=== PATIENT | female | born 1980 | race Caucasian/White ===

== ENCOUNTER 2017-05-10 06:42 | Inpatient (IN) | payer BC ==
[~2017-05-10] VITALS: Ht 170.2 cm; Wt 124.3 kg
[2017-05-10] MEDS ORDERED: OXYTOCIN 30 UNIT/500 ML PREMIX 500 ML IV ONE (07:48)
[2017-05-10] MEDS ORDERED: OXYTOCIN 30 UNIT/500 ML PREMIX 500 ML IV PRN ×4 (08:00→17:15)
[2017-05-10] MEDS ORDERED: LIDOCAINE 1% PF 30 ML VIAL. INJ PRN (08:00)
[2017-05-10] MEDS ORDERED: 0.9 % SODIUM CHLORIDE 10 ML DISP.SYRIN. IV PRN ×3 (08:00→17:15)
[2017-05-10] MEDS ORDERED: TERBUTALINE 1 MG/ML VIAL. SQ PRN (08:00)
[2017-05-10] MEDS ORDERED: fentaNYL PF VIAL 100 MCG/2 ML VIAL IV PRN (08:00)
[2017-05-10] MEDS ORDERED: BUTORPHANOL 2 MG/ML VIAL. IV PRN ×2 (08:00)
[2017-05-10] MEDS ORDERED: MAGNESIUM HYDROXIDE 2,400 MG/30 ML ORAL.SUSP. PO PRN ×2 (08:15→17:15)
[2017-05-10] MEDS ORDERED: SIMETHICONE 80 MG TAB.CHEW PO PRN ×2 (08:15→17:15)
[2017-05-10] MEDS ORDERED: HYDROCORTISONE 1% TOPICAL OINTMENT 30GM TUBE. TP PRN ×2 (08:15→17:15)
[2017-05-10] MEDS ORDERED: diphenhydrAMINE HCL 25 MG CAPSULE PO PRN ×2 (08:15→17:15)
[2017-05-10] MEDS ORDERED: ZOLPIDEM 5 MG TABLET. PO PRN (08:15)
[2017-05-10] MEDS ORDERED: ACETAMINOPHEN 325 MG TABLET. PO PRN (08:15)
[2017-05-10] MEDS ORDERED: DOCUSATE SODIUM 100 MG CAPSULE. PO PRN ×2 (08:15→17:15)
[2017-05-10] MEDS ORDERED: BENZOCAINE 20% TOPICAL AEROSOL SPRAY 57GM CAN. TP PRN ×2 (08:15→17:15)
[2017-05-10] MEDS ORDERED: MMR per PROTOCOL. MC PRN (08:15)
[2017-05-10] MEDS ORDERED: oxyCODONE/APAP 5/325 1 TAB TABLET PO PRN (08:15)
[2017-05-10] MEDS ORDERED: MAG HYDROX/ALUMINUM HYD/SIMETH 30 ML ORAL.SUSP PO PRN ×2 (08:15→17:15)
[2017-05-10] MEDS ORDERED: PHENYLEPH/MINERAL OIL/PETROLAT RECTAL OINTMENT 28GM TUBE. RC PRN ×2 (08:15→17:15)
[2017-05-10 08:19] VITALS: BP 144/90
[2017-05-10 08:28] LABS: HEMATOCRIT 33.2 % (36.0-47.0); HEMOGLOBIN 10.6 g/dL (12.0-15.5); RED BLOOD COUNT 4.2 x10^6/uL (3.50-5.40); RED CELL DISTRIBUTION WIDTH 15.2 % (11.5-14.5); WHITE BLOOD COUNT 12.8 x10^3/uL (4.0-11.0)
[2017-05-10] MEDS: CLINDAMYCIN 900MG PREMIX 50 ML IV SCH ×2 (09:28→18:20)
[2017-05-10] MEDS: IV RINGERS,LACTATED 1000ML 1,000 ML IV SCH ×3 (09:35→23:57)
[2017-05-10] MEDS ORDERED: L&D EPIDURAL CASSETTE 100 ML EP ONE (15:00)
[2017-05-10] MEDS ORDERED: ROPIVacaine 0.2% IN 0.9%NACL PF 40 MG/20 ML DISP.SYRIN. ONE (15:00)
[2017-05-10] MEDS ORDERED: fentaNYL PF VIAL 100 MCG/2 ML VIAL EPI ONE (15:30)
[2017-05-10] MEDS ORDERED: NALOXONE 0.4 MG/ML VIAL. IV PRN (15:30)
[2017-05-10] MEDS ORDERED: ePHEDrine PF IN SALINE 50 MG/5 ML DISP.SYRIN IV PRN (15:30)
[2017-05-10] MEDS ORDERED: ONDANSETRON PF 4 MG/2 ML VIAL. IV PRN (15:30)
[2017-05-10] MEDS ORDERED: ROPIVacaine 0.2% PF 10 ML VIAL. EPI ONE (15:30)
[2017-05-10] MEDS ORDERED: FAMOTIDINE 20 MG/2 ML VIAL IVP ONE (16:30)
[2017-05-10] MEDS: FERROUS SULFATE 325 MG TABLET. PO SCH (17:00)
[2017-05-10] MEDS ORDERED: LIDOCAINE 2% PF Vial for OR 5 ML VIAL. ONE (19:04)
[2017-05-10] MEDS ORDERED: miSOPROStol 200MCG TAB 200 MCG TABLET ONE (20:17)
[2017-05-10] MEDS ORDERED: L&D EPIDURAL CASSETTE 100 ML PUMP.RESVR. EP ONE (20:24)
[2017-05-10] MEDS ORDERED: miSOPROStol 200MCG TAB 200 MCG TABLET PR ONE (20:30)
--- NOTE | 2017-05-10 20:52 | HP ---
ADMIT DATE: 05/10/2017 CHIEF COMPLAINT AND HISTORY OF PRESENT ILLNESS: This patient is a 36-year-old white female who is a 2, para 1, EDC 05/19/2017, had a course which was complicated with gestational diabetes and also obesity. She has been on metformin and also labetalol for high blood pressure and the patient admitted to the hospital for elective induction of labor. OBJECTIVE: VITAL SIGNS: Stable. HEAD, EYES, NOSE, and THROAT: Within normal limits. LUNGS: Clear. HEART: Sounds regular sinus rhythm. ABDOMEN: 38-39 weeks. heart tones of 140 per minute, vertex presenting. PELVIC: Showed cervix 1 cm dilated and vertex presenting high. No bleeding noted at the time of the examination. EXTREMITIES: Slight edema of feet. DIAGNOSIS: 2, gestational diabetes with hypertension. PLAN: Induction and vaginal delivery. DEDE VAZ MD DR: WILLIAMS/winsome JOB#: [id number] / [id number]
--- NOTE | 2017-05-10 21:17 | LDN ---
DATE OF DELIVERY: This patient is a 36-year-old white female who is 2, para 1, EDC end of April 2017, had a course, which was uncomplicated with diabetes and also obesity. The patient was admitted to the hospital on 05/10/2017 for induction of labor and delivery because of gestational diabetes. At the time of admission to the hospital, cervix was about just 1 cm dilated. IV Pitocin was given, and she did progress to 5 cm. She did receive epidural block. Amniotomy was done. Clear amniotic fluid was seen, and she rapidly progressed to complete dilatation and had a spontaneous vaginal delivery. There was a shoulder dystocia. The left hand was released first and then the right hand of the baby, and baby was delivered at 8:00 p.m. on 05/10/2017 with the score of 6, 8 and 8. ____ was cut, and cord pH was sent for. Cord blood was taken. Placenta was removed, and she did receive Pitocin after delivery of the placenta. No hemorrhage noted. She has a second-degree perineal tear, and this was sutured with 2-0 chromic catgut sutures without any problem. Estimated blood loss about 300 mL. Baby was seen by nurse and referred to director of music for further care and treatment. DEDE VAZ MD DR: WILLIAMS/winsome JOB#: [id number] / [id number]
[2017-05-10] MEDS ORDERED: AMMONIA AROMATIC 15% INHALANT AMPUL. ONE (23:11)
[2017-05-11] VITALS (7 sets, daily range): BP systolic 125–145; BP diastolic 70–95
[2017-05-11] MEDS: CLINDAMYCIN 900MG PREMIX 50 ML IV SCH (00:30)
[2017-05-11 07:29] LABS: RPR REFLEX Non Reactive (Non Reactive)
[2017-05-11] MEDS: IV RINGERS,LACTATED 1000ML 1,000 ML IV SCH (07:57)
[2017-05-11] MEDS ORDERED: FERROUS SULFATE 325 MG TABLET. PO SCH (08:00)
[2017-05-11] MEDS: FERROUS SULFATE 325 MG TABLET. PO SCH ×2 (08:53→17:09)
--- NOTE | 2017-05-11 09:39 | PDOC ---
SUBJECTIVE Subjective Patient doing ok C/O Voiding urine No Excess bleeding OBJECTIVE Objective Vital signs stable Vital Signs Vital Signs Date Time Temp Pulse Resp B/P (MAP) Pulse Ox O2 Delivery O2 Flow Rate FiO2 05/11/17 09:11 Room Air 05/11/17 05:00 98.0 20 125/71 (89) 94 Room Air 98.0 05/11/17 02:20 98.7 104 20 135/77 (96) 97 Room Air 98.7 05/11/17 00:00 99.0 98 18 131/73 (92) Room Air 99.0 I & O Intake and Output 05/11/17 07:00 Intake Total 1500 ml Balance 1500 ml IV Total 1500 ml PHYSICAL EXAM Physical Exam Abdomen soft Uterus Firm Lochia normal Baby doing ok ASSESSMENT/PLAN Assessment/Plan Will follow recovery Doing fine for now Problems: COMMENT Lab Laboratory Tests Test 05/10/17 10:45 05/11/17 05:00 Hepatitis B Surface Antibody Reactive (.) Hematocrit 29.0 % (36.0-47.0) DEDE VAZ MD May 11, 2017 09:39
[2017-05-12 06:00] VITALS: BP 118/74
[2017-05-12] MEDS: FERROUS SULFATE 325 MG TABLET. PO SCH ×2 (08:55→17:39)
--- NOTE | 2017-05-12 10:18 | PDOC ---
SUBJECTIVE Subjective No complaints OBJECTIVE Objective No fever Abdomen soft No heavy bleeding Vital Signs Vital Signs Date Time Temp Pulse Resp B/P (MAP) Pulse Ox O2 Delivery O2 Flow Rate FiO2 05/12/17 06:00 98.0 88 19 118/74 (89) 98 98.0 05/11/17 22:51 97.9 81 20 132/70 (90) 97 97.9 05/11/17 17:20 97.8 87 18 141/91 (108) 97 Room Air 97.8 05/11/17 13:13 97.9 91 18 144/95 (111) 97 Room Air 97.9 91 I & O Intake and Output 05/12/17 07:00 Intake Total 1180 ml Balance 1180 ml Intake Oral 1180 ml PHYSICAL EXAM Physical Exam Abdomen soft Lochia normal ASSESSMENT/PLAN Assessment/Plan Baby getting bilirubin test in am Will dismiss patient Tomorrow AM Problems: DEDE VAZ MD May 12, 2017 10:17
[2017-05-12 10:25] VITALS: BP 117/72
[2017-05-12] MEDS ORDERED: MEASLES, MUMPS & RUBELLA VACC 0.5 ML VIAL. VAX SQ ONE (10:30)
[2017-05-12] MEDS ORDERED: DIPHTH,PERTUSS(ACELL),TET TOX 0.5 ML DISP.SYRIN. VAX IM ONE (10:30)
[2017-05-12 15:00] VITALS: BP 144/83
[2017-05-12 18:05] VITALS: BP 136/84
[2017-05-12 22:00] VITALS: BP 147/87
[2017-05-13 06:20] VITALS: BP 121/75
[2017-05-13 08:15] VITALS: BP 138/70
--- NOTE | 2017-05-13 08:18 | PDOC ---
SUBJECTIVE Subjective Doing ok Patient likes to go home OBJECTIVE Objective Vital signs stable Uterus firm Vital Signs Vital Signs Date Time Temp Pulse Resp B/P (MAP) Pulse Ox O2 Delivery O2 Flow Rate FiO2 05/13/17 06:20 98.0 114 18 121/75 (90) 97 Room Air 98.0 05/12/17 22:00 98.3 98 18 147/87 (107) Room Air 98.3 05/12/17 18:05 98.1 94 18 136/84 (101) Room Air 98.1 05/12/17 15:00 98.1 96 18 144/83 (103) 97 98.1 05/12/17 10:25 97.8 87 18 117/72 (87) Room Air 97.8 PHYSICAL EXAM Physical Exam No fever BP 138/70 Lochia normal ASSESSMENT/PLAN Assessment/Plan Patient to go home today Will see her in 6 weeks in office Problems: DEDE VAZ MD May 13, 2017 08:18
[2017-05-13] MEDS: FERROUS SULFATE 325 MG TABLET. PO SCH (08:56)
[2017-05-13 10:30] VITALS: BP 142/83
--- NOTE | 2017-05-15 14:56 | PATHOLOGY ---
PATHOLOGY REPORT * * * * * * * * FINAL DIAGNOSIS: 855 gram early term placenta of an estimated 38 weeks gestation with attached membranes and umbilical cord and detached segments of umbilical cord: - Large placenta. - Chorangiosis. - Subchorionic fibrin thrombus with focal villous entrapment and ischemic degeneration. - Small infarct. (JPM:; 05/14/2017) REPORT ELECTRONICALLY SIGNED BY: Tim Blakely M.D. DATE/TIME: 05/15/2017 14:55 * * * * * * * * GROSS PATHOLOGY: Received in formalin labeled "Delon Dwyer, placenta" is a madsen placenta with attached membranes and umbilical cord. The disc measures 20.5 x 20.2 x 3.5 cm. There is a site of membrane rupture which measures 5.4 cm from the placental margin. The umbilical cord has a central insertion, and measures 24.1 cm in length and 1.0-1.3 cm in diameter. Additionally present within the container are two separate portions of umbilical cord measuring 17.1 x 1.5 cm and 9.0 x 1.5 cm. The umbilical cord has three vessels and inserts 7.4 cm from the placental margin. The umbilical cord has no true knots. The membranes are thin and transparent and have a marginal insertion. The surface is blue-hamm with moderate subchorionic fibrin. Amnion nodosum is not present. There is a 18.0 x 7.6 cm cyst on the surface, which contains clotted blood. The placental disc is complete and the maternal surface has intact cotyledons. The placental disc weighs 855 g and is serially sectioned to reveal two possible infarcts measuring 2.2 x 1.3 x 1.0 cm and 4.2 x 1.5 x 1.3 cm, which begin on the surface. Minute calcifications are diffusely located throughout the placenta. Tractor Crane [employer] sections are submitted as follows: A1 Proximal and distal umbilical cord A2 membranes, rolled A3 Peripheral placenta A4 Central placenta ([facility] [place]; 05/12/2017) INITIAL CPT CODE(S): A; 42558 Professional services performed by [facility] at [facility] [address] [place] [id number] Technical services performed by [facility] at [address] [place] [address], [address], [place] [address]. SPECIMEN(S) RECEIVED: A.Placenta CLINICAL HISTORY: OBS, 38.4 week gestation, GDM, HTN, induction with vaginal delivery of 11lb 11oz male @ 1999 on 05/10/17, EDC 05/20/17, shoulder dystocia, OB emergency called, apgars 6-8-8, PATIENT: DELON HAMPTON /AGE: 1209/15/1980 (Age: 36) PATIENT #: [id number] ALT CASE #: SPECIMEN COLLECTION DATE: 05/10/2017 SPECIMEN RECEIVED DATE: 05/11/2017 [facility] - [address] [place] [address] - PHONE: [phone] * * * END OF REPORT * * *
== END 2017-05-13 11:00 | disposition home or self-care (01) | DRG 775 ==
LOC: 3 SO LND 06:42
PROVIDERS: ADMIT Obstetrics & Gynecology; ATTEND Obstetrics & Gynecology
PROC: 10E0XZZ Delivery of Products of Conception, External Approach (ICD-10-PCS; principal; 2017-05-10)
PROC: 0KQM0ZZ Repair Perineum Muscle, Open Approach (ICD-10-PCS; 2017-05-10)
PROC: 3E0S3CZ (ICD-10-PCS; 2017-05-10)
PROC: 00HU33Z Insertion of Infusion Device into Spinal Canal, Percutaneous Approach (ICD-10-PCS; 2017-05-10)
PROC: 10907ZC Drainage of Amniotic Fluid, Therapeutic from Products of Conception, Via Natural or Artificial Opening (ICD-10-PCS; 2017-05-10)
DX: O24.419 Gestational diabetes mellitus in pregnancy, unspecified control (principal); Z68.41 Body mass index [BMI] 40.0-44.9, adult; O99.214 Obesity complicating childbirth; E66.9 Obesity, unspecified; O70.1 Second degree perineal laceration during delivery; O66.0 Obstructed labor due to shoulder dystocia; O16.4 Unspecified maternal hypertension, complicating childbirth; Z37.0 Single live birth; Z3A.38 38 weeks gestation of pregnancy
CPT/HCPCS: 36415; 85014; 85027; 86593; 86706; 86850; 86900; 86901; 90707; 90715; J2590; J2795; J3490; J7120; S0028